=== PATIENT | male | born 1970 | race Caucasian/White ===

== ENCOUNTER 2017-08-05 01:53 | Emergency (ER) | payer BC ==
[2017-08-05] MEDS ORDERED: ALLO-119 PO (02:05)
[2017-08-05] MEDS ORDERED: INDO-1 PO (02:05)
--- NOTE | 2017-08-05 02:13 | ER Report ---
History and Physical Time Seen By MD: 02:13 Hx. of Stated Complaint: Pt reporting abdominal pain that began at 2130 yesteday. No vomiting but nausea. Pt reports it feels like he needs to have a large bowel movement but has been passing small BM's all throughout the night. HPI/ROS CHIEF COMPLAINT: abdominal pain HISTORY OF PRESENT ILLNESS: This is a 46 year old male. He has been having sudden onset of abdominal pain at about 2130 hours. This is in the right lower abdomen. Pressure feeling. Seems to be getting worse. [place] need to have a bowel movement, but only having small amounts. Was worried about his appendix or possible obstruction. No history of abdominal surgeries in the past. No fever. Nausea, but no vomiting. Normal urination. Pain seemed to improve with up and waling, but worse with sitting or laying down. No fever or chills with this. REVIEW OF SYSTEMS: Constitutional: As erik. Eyes: No vision changes. ENT: No sore throat. No congestion. Cardiovascular: No chest pain. Respiratory: No cough. No shortness of breath. Gastrointestinal: As above. Genitourinary: As above. Musculoskeletal: No musculoskeletal pain. Skin: No rashes. Neurological: No weakness. No headache. Allergies: Coded Allergies: Penicillins (Verified Allergy, Unknown, 08/05/17) Home Meds Active Scripts Ondansetron (ZOFRAN ODT) 4 Mg Tab.rapdis, 4 MG PO Q6H Y for NAUSEA/VOMITING, # 20 TAB.RENY 0 Refills Prov:OSCAR BUNDY MD 08/05/17 Ketorolac Tromethamine (KETOROLAC TROMETHAMINE) 10 Mg Tab, 10 MG PO Q6H Y for PAIN, #12 TAB 0 Refills Prov:OSCAR BUNDY MD 08/05/17 Hydrocodone Bit/Acetaminophen (HYDROCODON-ACETAMINOPHEN 5-325) 1 Each Tablet, 1 EACH PO Q4H Y for PAIN, #12 TAB 0 Refills Prov:OSCAR BUNDY MD 08/05/17 Tamsulosin Hcl (FLOMAX) 0.4 Mg Cap.er.24h, 0.4 MG PO QDAY, #14 CAP 0 Refills Prov:OSCAR BUNDY MD 08/05/17 Reported Medications Indomethacin (INDOMETHACIN) 25 Mg Capsule, 25 MG PO PRN, CAPSULE 08/05/17 Allopurinol (ZYLOPRIM) 300 Mg Tablet, 600 MG PO QDAY, TAB 08/05/17 Reviewed Nurses Notes: Yes Constitutional Vital Sign - Last 24 Hours 08/05/17 08/05/17 08/05/17 08/05/17 01:58 01:59 02:03 02:08 Temp 97.7 Pulse 74 76 74 Resp 18 B/P (MAP) 160/101 160/101 (120) Pulse Ox 91 90 O2 Delivery Room Air 08/05/17 08/05/17 08/05/17 08/05/17 02:13 02:18 02:30 02:33 Pulse 76 76 75 B/P (MAP) 152/93 (112) Pulse Ox 93 08/05/17 08/05/17 08/05/17 08/05/17 02:38 03:00 03:00 03:03 Pulse 75 B/P (MAP) 161/104 (123) Pulse Ox 88 94 O2 Flow Rate 1.0 08/05/17 08/05/17 08/05/17 08/05/17 03:13 03:18 03:23 03:28 Pulse 71 76 ??? 73 Pulse Ox 93 95 94 08/05/17 08/05/17 08/05/17 08/05/17 03:30 03:33 03:38 03:43 Pulse 83 72 ??? B/P (MAP) 150/93 (112) Pulse Ox 91 96 96 08/05/17 08/05/17 08/05/17 08/05/17 03:48 03:58 04:00 04:05 Pulse 71 80 76 B/P (MAP) 147/89 (108) Pulse Ox 96 90 08/05/17 08/05/17 08/05/17 04:10 04:14 04:18 Pulse 81 75 85 Resp 16 B/P (MAP) 138/85 (102) Pulse Ox 89 89 92 O2 Delivery Room Air Physical Exam General Appearance: The patient is alert. No acute distress. Eyes: Pupils are equal, round. No pallor, injection or icterus. ENT: Mucous membranes are moist. Normal oral mucosa. Neck: Supple and non tender. Respiratory: Lungs are clear to auscultation. Cardiovascular: Regular rate and rhythm. No murmurs, gallops or rubs. Normal capillary refill. Gastrointestinal: Abdomen is soft, pain in right lower abdomen. No rebound or guarding. Nondistended. Normal active bowel sounds. No costovertebral angle tenderness with percussion. Neurological: Alert and oriented x3. No focal neurologic deficits Skin: Warm and dry. No rashes. Musculoskeletal: No tenderness in palpation of the thoracic and lumbar spine. DIFFERENTIAL DIAGNOSIS: After history and physical exam, differential diagnosis was considered for abdominal pain including but not limited to appendicitis, cholecystitis, gastritis and urinary tract infection. Medical Decision Making Data Points Result Diagram: 08/05/17 0206 08/05/17 0206 Laboratory Hematology Test 08/05/17 02:06 Red Blood Count 5.89 M/uL (4.00-5.60) Mean Corpuscular Volume 86.5 fL (80.0-96.0) Mean Corpuscular Hemoglobin 29.3 pg (26.0-33.0) Mean Corpuscular Hemoglobin Concent 33.9 g/dL (32.0-36.0) Red Cell Distribution Width 13.8 % (11.5-14.5) Mean Platelet Volume 8.9 fL (7.2-11.1) Neutrophils (%) (Auto) 74.5 % (39.4-72.5) Lymphocytes (%) (Auto) 16.8 % (17.6-49.6) Monocytes (%) (Auto) 5.9 % (4.1-12.4) Eosinophils (%) (Auto) 2.2 % (0.4-6.7) Basophils (%) (Auto) 0.6 % (0.3-1.4) Nucleated RBC Relative Count (auto) 0.1 /100WBC Neutrophils # (Auto) 7.0 K/uL (2.0-7.4) Lymphocytes # (Auto) 1.6 K/uL (1.3-3.6) Monocytes # (Auto) 0.5 K/uL (0.3-1.0) Eosinophils # (Auto) 0.2 K/uL (0.0-0.5) Basophils # (Auto) 0.1 K/uL (0.0-0.1) Nucleated RBC Absolute Count (auto) 0.01 K/uL Urine Color Yellow Urine Clarity Clear Urine pH 5.0 pH (4.8-9.5) Urine Specific [place] 1.024 Urine Protein Negative mg/dL (NEGATIVE) Urine Glucose (UA) Negative mg/dL (NEGATIVE) Urine Ketones Negative mg/dL (NEGATIVE) Urine Blood Small (NEGATIVE) Urine Nitrite Negative (NEGATIVE) Urine Bilirubin Negative (NEGATIVE) Urine Urobilinogen Negative mg/dL (0.2-1.9) Urine Leukocyte Esterase Negative (NEGATIVE) Urine RBC 2 /HPF (0-2/HPF) Urine WBC <1 /HPF (0-5/HPF) Urine Squamous Epithelial Cells None /LPF (</=FEW) Urine Bacteria Negative /HPF (NONE-FEW) Urine Mucus Few /HPF (NONE-FEW) Sodium Level 140 mmol/L (137-145) Potassium Level 4.0 mmol/L (3.5-5.0) Chloride Level 102 mmol/L (98-107) Carbon Dioxide Level 25 mmol/L (22-30) Blood Urea Nitrogen 22 mg/dl (9-21) Creatinine 1.60 mg/dl (0.66-1.25) Glomerular Filtration Rate Calc 46.4 Random Glucose 115 mg/dl (75-110) Lactate 1.9 mmol/L (0.7-2.1) Calcium Level 9.4 mg/dl (8.4-10.2) Total Bilirubin 0.4 mg/dl (0.2-1.3) Aspartate Amino Transf (AST/SGOT) 26 U/L (0-35) Alanine Aminotransferase (ALT/SGPT) 58 U/L (0-56) Alkaline Phosphatase 70 U/L (0-126) C-Reactive Protein 0.6 mg/dl (<1.0) Total Protein 7.4 gm/dl (6.3-8.2) Albumin 4.2 g/dl (3.5-5.0) Amylase Level 76 U/L (0-110) Lipase 102 U/L (23-300) Chemistry Test 08/05/17 02:06 White Blood Count 9.4 k/uL (4.5-11.0) Red Blood Count 5.89 M/uL (4.00-5.60) Hemoglobin 17.3 g/dL (14.0-18.0) Hematocrit 50.9 % (42.0-52.0) Mean Corpuscular Volume 86.5 fL (80.0-96.0) Mean Corpuscular Hemoglobin 29.3 pg (26.0-33.0) Mean Corpuscular Hemoglobin Concent 33.9 g/dL (32.0-36.0) Red Cell Distribution Width 13.8 % (11.5-14.5) Platelet Count 145 K/uL (150-450) Mean Platelet Volume 8.9 fL (7.2-11.1) Neutrophils (%) (Auto) 74.5 % (39.4-72.5) Lymphocytes (%) (Auto) 16.8 % (17.6-49.6) Monocytes (%) (Auto) 5.9 % (4.1-12.4) Eosinophils (%) (Auto) 2.2 % (0.4-6.7) Basophils (%) (Auto) 0.6 % (0.3-1.4) Nucleated RBC Relative Count (auto) 0.1 /100WBC Neutrophils # (Auto) 7.0 K/uL (2.0-7.4) Lymphocytes # (Auto) 1.6 K/uL (1.3-3.6) Monocytes # (Auto) 0.5 K/uL (0.3-1.0) Eosinophils # (Auto) 0.2 K/uL (0.0-0.5) Basophils # (Auto) 0.1 K/uL (0.0-0.1) Nucleated RBC Absolute Count (auto) 0.01 K/uL Urine Color Yellow Urine Clarity Clear Urine pH 5.0 pH (4.8-9.5) Urine Specific [place] 1.024 Urine Protein Negative mg/dL (NEGATIVE) Urine Glucose (UA) Negative mg/dL (NEGATIVE) Urine Ketones Negative mg/dL (NEGATIVE) Urine Blood Small (NEGATIVE) Urine Nitrite Negative (NEGATIVE) Urine Bilirubin Negative (NEGATIVE) Urine Urobilinogen Negative mg/dL (0.2-1.9) Urine Leukocyte Esterase Negative (NEGATIVE) Urine RBC 2 /HPF (0-2/HPF) Urine WBC <1 /HPF (0-5/HPF) Urine Squamous Epithelial Cells None /LPF (</=FEW) Urine Bacteria Negative /HPF (NONE-FEW) Urine Mucus Few /HPF (NONE-FEW) Glomerular Filtration Rate Calc 46.4 Lactate 1.9 mmol/L (0.7-2.1) Calcium Level 9.4 mg/dl (8.4-10.2) Total Bilirubin 0.4 mg/dl (0.2-1.3) Aspartate Amino Transf (AST/SGOT) 26 U/L (0-35) Alanine Aminotransferase (ALT/SGPT) 58 U/L (0-56) Alkaline Phosphatase 70 U/L (0-126) C-Reactive Protein 0.6 mg/dl (<1.0) Total Protein 7.4 gm/dl (6.3-8.2) Albumin 4.2 g/dl (3.5-5.0) Amylase Level 76 U/L (0-110) Lipase 102 U/L (23-300) Urinalysis Test 08/05/17 02:06 Urine Color Yellow Urine Clarity Clear Urine pH 5.0 pH (4.8-9.5) Urine Specific [place] 1.024 Urine Protein Negative mg/dL (NEGATIVE) Urine Glucose (UA) Negative mg/dL (NEGATIVE) Urine Ketones Negative mg/dL (NEGATIVE) Urine Blood Small (NEGATIVE) Urine Nitrite Negative (NEGATIVE) Urine Bilirubin Negative (NEGATIVE) Urine Urobilinogen Negative mg/dL (0.2-1.9) Urine Leukocyte Esterase Negative (NEGATIVE) Urine RBC 2 /HPF (0-2/HPF) Urine WBC <1 /HPF (0-5/HPF) Urine Squamous Epithelial Cells None /LPF (</=FEW) Urine Bacteria Negative /HPF (NONE-FEW) Urine Mucus Few /HPF (NONE-FEW) EKG/Imaging Imaging EXAMINATION: Abdomen and pelvis CT with contrast HISTORY: Right lower quadrant pain TECHNIQUE: CT was performed through the abdomen and pelvis following injection of iodinated intravenous contrast. Sagittal and coronal MPR reformatted images were generated. 75 mL isovue 370 injected. One of the following dose optimization techniques was utilized in the performance of this exam: automated exposure control; adjustment of the mA and/ or kV according to patient size; or use of iterative reconstruction technique. Specific details can be referenced in the facility's radiology CT exam operational policy. COMPARISON: None. FINDINGS: Lower chest: Normal. Spleen: Normal. Adrenal glands: Normal. Pancreas: Normal. Kidneys: Mild right perinephric fat stranding. Mild right hydronephrosis and mild right hydroureter. 4 mm calculus at the right ureterovesical junction. Gallbladder: Normal. Liver: Normal. Vessels: Normal. Lymph node assessment: Normal. Bowel including small bowel, colon and appendix: Normal stomach, normal small bowel, normal appendix, normal colon. Peritoneum / retroperitoneum / mesentery: Normal. Pelvic structures: Normal bladder, normal prostate, normal rectum. No pelvic fluid or adenopathy. Body wall: Normal. Musculoskeletal: No fracture or osseous destruction. IMPRESSION: 1. 4 mm calculus at the right ureterovesical junction results in mild right hydroureter and mild right hydronephrosis. Right perinephric fat stranding is favored to be related to the obstructive calculus. Correlate with urinalysis to exclude the possibility of pyelonephritis. 2. Otherwise normal abdomen and pelvis CT. Report Dictated By: Robert Coelho MD at 08/05/2017 3:05 AM ED Course/Re-evaluation Clinical Indication for ER IV: Hydration, IV Access ED Course Initially treated with Fentanyl IV and Zofran. Labs unremarkable. CT scan shows right kidney stone at uretero-vesicular junction. Improved with a liter of fluid and addition of Toradol 30mg IV. Also given Flomax. Home meds as noted below. Decision to Disposition Date: Aug 05, 2017 Decision to Disposition Time: 04:02 Depart Departure Latest Vital Signs Vital Signs Date Time Temp Pulse Resp B/P (MAP) Pulse Ox O2 Delivery O2 Flow Rate FiO2 08/05/17 04:18 85 16 138/85 (102) 92 Room Air 08/05/17 03:00 1.0 08/05/17 01:58 97.7 Impression: Primary Impression: Kidney stone on right side Condition: Improved Disposition: HOME OR SELF-CARE New Scripts Ondansetron (ZOFRAN ODT) 4 Mg Tab.rapdis 4 MG PO Q6H Y for NAUSEA/VOMITING, #20 TAB.RENY 0 Refills Prov: OSCAR BUNDY MD 08/05/17 Ketorolac Tromethamine (KETOROLAC TROMETHAMINE) 10 Mg Tab 10 MG PO Q6H Y for PAIN, #12 TAB 0 Refills Prov: OSCAR BUNDY MD 08/05/17 Hydrocodone Bit/Acetaminophen (HYDROCODON-ACETAMINOPHEN 5-325) 1 Each Tablet 1 EACH PO Q4H Y for PAIN, #12 TAB 0 Refills Prov: OSCAR BUNDY MD 08/05/17 Tamsulosin Hcl (FLOMAX) 0.4 Mg Cap.er.24h 0.4 MG PO QDAY, #14 CAP 0 Refills Prov: OSCAR BUNDY MD 08/05/17 Patient Instructions: Kidney Stones (ED) Additional Instructions: Rest and increase fluid intake. For pain you can use Toradol 10mg, one every 6 hours as needed for pain. Lortab 5/325, take 1-2 every 4 hours as needed for pain. For Nausea: Zofran 4mg, one every 4-6 hours as needed for nausea. To help the stone to pass and to help decrease swelling and pain in the urinary system after the stone passes, we recommend using Flomax 0.4mg one daily for the next couple of weeks. OSCAR BUNDY MD Aug 05, 2017 02:13
[2017-08-05] MEDS ORDERED: NS(*) 0.9% 1000 ML BAG 1,000 ML IV ONE (02:19)
[2017-08-05] MEDS ORDERED: ONDANSETRON 4 MG/2 ML VIAL IVP ONE (02:20)
[2017-08-05 02:26] LABS: PLATELET COUNT, AUTOMATED 145 K/uL (150-450)
[2017-08-05] MEDS ORDERED: IOPAMIDOL 76% 75 ML INFUS BTL 75 ML ONE (02:28)
[2017-08-05] MEDS ORDERED: NS 0.9% 20 ML SDV 40 ML ONE (02:28)
[2017-08-05] MEDS ORDERED: fentaNYL CITR 100 MCG/2 ML AMP IVP ONE (02:45)
--- NOTE | 2017-08-05 03:20 | RADIOLOGY IMAGING REPORT ---
FACILITY: [facility] - [place] PATIENT NAME: Marshall Reeder : 1970 MR: [id number] V: [id number] EXAM DATE: ORDERING PHYSICIAN: OSCAR BUNDY TECHNOLOGIST: Location: [facility] - [place], [place] Patient: Marshall Reeder : 1970 Visit/Account:[id number] Date of Sevice: 08/05/2017 EXAMINATION: Abdomen and pelvis CT with contrast HISTORY: Right lower quadrant pain TECHNIQUE: CT was performed through the abdomen and pelvis following injection of iodinated intrave nous contrast. Sagittal and coronal MPR reformatted images were generated. 75 mL isovue 370 injected . One of the following dose optimization techniques was utilized in the performance of this exam: autom ated exposure control; adjustment of the mA and/or kV according to patient size; or use of iterative reconstruction technique. Specific details can be referenced in the facility's radiology CT exam ope rational policy. COMPARISON: None. FINDINGS: Lower chest: Normal. Spleen: Normal. Adrenal glands: Normal. Pancreas: Normal. Kidneys: Mild right perinephric fat stranding. Mild right hydronephrosis and mild right hydroureter. 4 mm calculus at the right ureterovesical junction. Gallbladder: Normal. Liver: Normal. Vessels: Normal. Lymph node assessment: Normal. Bowel including small bowel, colon and appendix: Normal stomach, normal small bowel, normal appendix, normal colon. Peritoneum / retroperitoneum / mesentery: Normal. Pelvic structures: Normal bladder, normal prostate, normal rectum. No pelvic fluid or adenopathy. Body wall: Normal. Musculoskeletal: No fracture or osseous destruction. IMPRESSION: 1. 4 mm calculus at the right ureterovesical junction results in mild right hydroureter and mild righ t hydronephrosis. Right perinephric fat stranding is favored to be related to the obstructive calculu s. Correlate with urinalysis to exclude the possibility of pyelonephritis. 2. Otherwise normal abdomen and pelvis CT. Report Dictated By: Robert Coelho MD at 08/05/2017 3:05 AM Report E-Signed By: Robert Coelho MD at 08/05/2017 3:11 AM [id number]
[2017-08-05] MEDS ORDERED: TAMSULOSIN HCL 0.4 MG CAP PO ONE (03:40)
[2017-08-05] MEDS ORDERED: KETOROLAC 30 MG/ML VIAL IVP ONE (03:40)
[2017-08-05] MEDS ORDERED: ONDA4TAB PO (04:04)
[2017-08-05] MEDS ORDERED: KET10 PO (04:04)
[2017-08-05] MEDS ORDERED: TAMS0.4C25 PO (04:04)
[2017-08-05] MEDS ORDERED: LOR5/325 PO (04:04)
[2017-08-05] MEDS ORDERED: ACET/HYDROC 5/325MG TH ER ONLY 2 TAB/BOTTLE PO ONE (04:05)
[2017-08-05] MEDS ORDERED: ONDANSETRON 4 MG ODT TH SL ONE (04:05)
[2017-08-05 04:18] VITALS: BP 138/85
== END 2017-08-05 04:16 | disposition home or self-care (01) ==
LOC: ER 02:00
DX: N20.0 Calculus of kidney (principal)
CPT/HCPCS: 74177; 81001; 82150; 83605; 83690; 85025; 86140; 96361; 96374; 96375; 99284; J1885; J2405; J3010; J7030; J7050; Q9967; S0119; 82040; 82247; 82310; 82374; 82435; 82565; 82947; 84075; 84132; 84155; 84295; 84450; 84460; 84520